=== PATIENT | male | born 1995 | race Caucasian/White ===

== ENCOUNTER 2017-01-06 21:14 | Emergency (ER) | payer MEDICAID, OTHER ==
[~2017-01-06] VITALS: Ht 180.3 cm; Wt 100.0 kg
[2017-01-06 22:05] LABS: BASOPHILS # (AUTO) 0.03 K/uL (0.00-0.20); BASOPHILS % (AUTO) 0.3 % (0.0-2.0); EOSINOPHILS # (AUTO) 0.01 K/uL (0.00-0.70); EOSINOPHILS % (AUTO) 0.11 % (1.0-6.0); HEMATOCRIT 46.2 % (41-53); HEMOGLOBIN 15.7 g/dL (13.5-17.5); LYMPHOCYTES % (AUTO) 11.5 % (22.0-44.0); MEAN CORPUSCULAR HEMOGLOBIN 30.8 pg (26.0-34.0); MEAN CORPUSCULAR VOLUME 91 fL (80-100); MONOCYTES # (AUTO) 0.8 K/uL (0.1-1.0); NEUTROPHILS % (AUTO) 79.1 % (40.0-70.0); PLATELET COUNT (AUTO) 243 K/uL (150-450); RED CELL DISTRIBUTION WIDTH 12.7 % (11.5-14.5); WHITE BLOOD COUNT (AUTO) 8.9 K/uL (4.5-11.0)
[2017-01-06 22:18] LABS: ANION GAP 11 mmol/L (8-16); CALCIUM, TOTAL 9.9 mg/dL (8.8-10.5); CARBON DIOXIDE 28 mmol/L (22-29); CHLORIDE 100 mmol/L (98-107); CREATININE 1.07 mg/dL (0.60-1.30); GLOMERULAR FILTR. RATE CALC > 60 mL/min (>60); POTASSIUM 4.2 mmol/L (3.5-5.1); SODIUM SERUM 139 mmol/L (136-145); UREA NITROGEN, BLOOD 14 mg/dL (7-18)
[2017-01-06 22:19] LABS: ADD UA MICROSCOPIC NO; APPEARANCE,URINE CLEAR (CLEAR); GLUCOSE, URINE (UA) NEGATIVE (NEGATIVE); KETONES,URINE NEGATIVE (NEGATIVE); LEUKOCYTE ESTERASE ,URINE NEGATIVE (NEGATIVE); OCCULT BLOOD,URINE NEGATIVE (NEGATIVE); PH,URINE 6.5 (5.0-8.0); PROTEIN,URINE NEGATIVE (NEGATIVE)
[2017-01-06 22:24] LABS: ALANINE AMINOTRANSFERASE 201 U/L (12-78); ALBUMIN 4.3 g/dL (3.4-5.0); ASPARTATE AMINOTRANSFERASE 75 U/L (15-37); BILIRUBIN,TOTAL 0.5 mg/dL (0.1-1.0)
[2017-01-07] MEDS ORDERED: MAG HYDROX/AL HYDROX/SIMETH ES 30 ML SUSPENSION UDCUP PO ONE (00:30)
[2017-01-07] MEDS ORDERED: ONDANSETRON HCL 4 MG TABLET PO ONE (00:30)
[2017-01-07] MEDS ORDERED: ACETAMINOPHEN 500 MG TABLET PO ONE (00:30)
[2017-01-07 01:23] VITALS: BP 139/86
== END 2017-01-07 03:06 | disposition home or self-care (01) ==
LOC: EMS 21:15
DX: K29.70 Gastritis, unspecified, without bleeding (principal); K76.0 Fatty (change of) liver, not elsewhere classified; F15.10 Other stimulant abuse, uncomplicated
CPT/HCPCS: 36415; 76700; 80053; 80307; 81003; 83690; 85025; 99285; Q0162

== ENCOUNTER 2017-01-23 14:27 | Emergency (ER) | payer MEDICAID ==
[~2017-01-23] VITALS: Ht 180.3 cm; Wt 79.5 kg
[2017-01-23 15:11] VITALS: BP 122/80
== END 2017-01-23 15:55 | disposition home or self-care (01) ==
LOC: EMS 14:29
DX: L08.9 Local infection of the skin and subcutaneous tissue, unspecified (principal); F17.210 Nicotine dependence, cigarettes, uncomplicated; F19.90 Other psychoactive substance use, unspecified, uncomplicated
CPT/HCPCS: 99283

== ENCOUNTER 2017-02-08 20:28 | Emergency (ER) | payer MEDICAID ==
[~2017-02-08] VITALS: Ht 180.3 cm; Wt 94.1 kg
[2017-02-08] MEDS ORDERED: BACITRACIN 0.9 GM PACKET OINTMENT TP ONE (21:00)
[2017-02-08] MEDS ORDERED: CefTRIAXone SODIUM 1 GM/VIAL IM ONE (21:00)
[2017-02-08] MEDS ORDERED: LIDOCAINE HCL/PF 1% 2 ML VIAL IM ONE (21:00)
[2017-02-08 21:23] VITALS: BP 127/79
== END 2017-02-08 21:44 | disposition home or self-care (01) ==
LOC: EMS 20:31
DX: L03.116 Cellulitis of left lower limb (principal); L03.115 Cellulitis of right lower limb; L98.9 Disorder of the skin and subcutaneous tissue, unspecified; F19.90 Other psychoactive substance use, unspecified, uncomplicated; F17.210 Nicotine dependence, cigarettes, uncomplicated
CPT/HCPCS: 96372; 99283; J0696; J3490

== ENCOUNTER 2018-03-11 17:40 | Emergency (ER) | payer MEDICAID ==
[~2018-03-11] VITALS: Ht 180.3 cm; Wt 81.8 kg
[2018-03-11] MEDS ORDERED: IBUPROFEN 800 MG TABLET PO ONE (18:30)
[2018-03-11] MEDS ORDERED: BACITRACIN 0.9 GM PACKET OINTMENT TP ONE (19:45)
[2018-03-11] MEDS ORDERED: CEPHALEXIN MONOHYDRATE 500 MG CAPSULE PO ONE (20:00)
[2018-03-11 20:15] VITALS: BP 129/76
== END 2018-03-11 20:22 | disposition home or self-care (01) ==
LOC: EMS 17:41
DX: S99.911A Unspecified injury of right ankle, initial encounter (principal); L03.115 Cellulitis of right lower limb; F17.210 Nicotine dependence, cigarettes, uncomplicated; F12.90 Cannabis use, unspecified, uncomplicated; F19.90 Other psychoactive substance use, unspecified, uncomplicated; X58.XXXA Exposure to other specified factors, initial encounter; Y93.89 Activity, other specified; Y92.89 Other specified places as the place of occurrence of the external cause; Y99.8 Other external cause status
CPT/HCPCS: 29515; 99284; 99406

== ENCOUNTER 2018-07-23 23:07 | Emergency (ER) | payer MEDICAID ==
[~2018-07-23] VITALS: Ht 180.3 cm; Wt 84.1 kg
[2018-07-24 03:50] VITALS: BP 137/81
== END 2018-07-24 04:35 | disposition home or self-care (01) ==
LOC: EMS 23:08
DX: M79.671 Pain in right foot (principal); M79.672 Pain in left foot; M25.572 Pain in left ankle and joints of left foot; F17.210 Nicotine dependence, cigarettes, uncomplicated; F15.90 Other stimulant use, unspecified, uncomplicated; F12.90 Cannabis use, unspecified, uncomplicated; X50.1XXA Overexertion from prolonged static or awkward postures, initial encounter; Y93.89 Activity, other specified; Y92.89 Other specified places as the place of occurrence of the external cause; Y99.8 Other external cause status

== ENCOUNTER 2018-07-25 10:19 | Emergency (ER) | payer MEDICAID ==
[~2018-07-25] VITALS: Ht 180.3 cm; Wt 81.8 kg
[2018-07-25] MEDS ORDERED: [UNRECOGNIZED DRUG - OTHER] TP ONE (11:15)
[2018-07-25] MEDS ORDERED: TERBINAFINE HCL 1% 30 GM CREAM TP ONE (11:15)
[2018-07-25 12:00] VITALS: BP 122/71
== END 2018-07-25 12:28 | disposition home or self-care (01) ==
LOC: EMS 10:22
DX: B35.3 Tinea pedis (principal); F17.210 Nicotine dependence, cigarettes, uncomplicated; F12.90 Cannabis use, unspecified, uncomplicated; F19.90 Other psychoactive substance use, unspecified, uncomplicated
CPT/HCPCS: 99406

== ENCOUNTER 2018-07-28 19:39 | Emergency (ER) | payer MEDICAID ==
[~2018-07-28] VITALS: Ht 180.3 cm; Wt 77.3 kg
[2018-07-28 22:24] VITALS: BP 115/70
== END 2018-07-28 22:27 | disposition home or self-care (01) ==
LOC: EMS 19:40
DX: S93.601A Unspecified sprain of right foot, initial encounter (principal); F11.90 Opioid use, unspecified, uncomplicated; F12.90 Cannabis use, unspecified, uncomplicated; F15.90 Other stimulant use, unspecified, uncomplicated; F17.210 Nicotine dependence, cigarettes, uncomplicated; X50.9XXA Other and unspecified overexertion or strenuous movements or postures, initial encounter; Y93.89 Activity, other specified; Y92.89 Other specified places as the place of occurrence of the external cause; Y99.8 Other external cause status

== ENCOUNTER 2018-07-29 20:47 | Emergency (ER) | payer MEDICAID ==
[~2018-07-29] VITALS: Ht 180.3 cm; Wt 79.5 kg
[2018-07-29 20:54] VITALS: BP 118/87
== END 2018-07-29 22:45 | disposition left against medical advice (07) ==
LOC: EMS 20:47
DX: M79.604 Pain in right leg (principal); Z53.21 Procedure and treatment not carried out due to patient leaving prior to being seen by health care provider

== ENCOUNTER 2018-08-10 23:22 | Emergency (ER) | payer MEDICAID ==
[~2018-08-10] VITALS: Ht 180.3 cm; Wt 79.5 kg
[2018-08-11] MEDS ORDERED: NEOMYCIN/BACITRACIN/POLYMYXIN B OINTMENT PACKET TP ONE (01:45)
[2018-08-11 02:04] VITALS: BP 133/80
== END 2018-08-11 02:07 | disposition home or self-care (01) ==
LOC: EMS 23:23
DX: S90.822A Blister (nonthermal), left foot, initial encounter (principal); S90.821A Blister (nonthermal), right foot, initial encounter; F15.10 Other stimulant abuse, uncomplicated; F11.10 Opioid abuse, uncomplicated; B35.3 Tinea pedis; F17.210 Nicotine dependence, cigarettes, uncomplicated; F12.90 Cannabis use, unspecified, uncomplicated; X58.XXXA Exposure to other specified factors, initial encounter; Y93.89 Activity, other specified; Y92.89 Other specified places as the place of occurrence of the external cause; Y99.8 Other external cause status
CPT/HCPCS: 99406

== ENCOUNTER 2018-08-18 03:28 | Emergency (ER) | payer MEDICAID | END 2018-08-18 04:00 | disposition left against medical advice (07) | LOC: EMS 03:28 | DX: Z00.00 Encounter for general adult medical examination without abnormal findings (principal); Z53.21 Procedure and treatment not carried out due to patient leaving prior to being seen by health care provider ==

== ENCOUNTER 2018-10-06 03:01 | Emergency (ER) | payer MEDICAID ==
[~2018-10-06] VITALS: Ht 180.3 cm; Wt 79.5 kg
[2018-10-06 04:16] LABS: AMPHET/METH SCREEN,URINE NEGATIVE (NEGATIVE); BARBITURATE SCREEN, URINE NEGATIVE (NEGATIVE); BENZODIAZEPINES SCREEN,URINE NEGATIVE (NEGATIVE); CANNABINOID SCREEN,URINE POSITIVE (NEGATIVE); COCAINE SCREEN,URINE NEGATIVE (NEGATIVE); METHADONE SCREEN, URINE NEGATIVE (NEGATIVE); OPIATE SCREEN,URINE NEGATIVE (NEGATIVE); PHENCYCLIDINE SCREEN,URINE NEGATIVE (NEGATIVE)
[2018-10-06 04:33] VITALS: BP 110/71
== END 2018-10-06 05:51 | disposition home or self-care (01) ==
LOC: EMS 03:01
DX: R07.89 Other chest pain (principal); F17.210 Nicotine dependence, cigarettes, uncomplicated; F15.90 Other stimulant use, unspecified, uncomplicated; F12.90 Cannabis use, unspecified, uncomplicated

== ENCOUNTER 2018-11-12 14:08 | Inpatient (IN) | payer MEDICAID ==
[~2018-11-12] VITALS: Ht 180.3 cm; Wt 68.7 kg
[2018-11-12] MEDS ORDERED: LORazepam 2 MG/ML VIAL IM ONE (14:30)
[2018-11-12] MEDS ORDERED: HALOPERIDOL LACTATE 5 MG/ML VIAL IM ONE (14:30)
[2018-11-12] MEDS ORDERED: DiphenhydrAMINE HCL 50 MG/ML VIAL IM ONE (14:30)
[2018-11-12 16:35] LABS: BASOPHILS % (AUTO) 0.7 % (0.0-2.0); EOSINOPHILS % (AUTO) 1.1 % (1.0-6.0); HEMATOCRIT 41.2 % (41-53); LYMPHOCYTES # (AUTO) 1.6 K/uL (1.0-4.8); LYMPHOCYTES % (AUTO) 19.8 % (22.0-44.0); MEAN CORPUSCULAR VOLUME 88 fL (80-100); MONOCYTES # (AUTO) 0.9 K/uL (0.1-1.0); MONOCYTES % (AUTO) 10.8 % (2.0-9.0); NEUTROPHILS # (AUTO) 5.4 K/uL (1.8-7.7); NEUTROPHILS % (AUTO) 67.6 % (40.0-70.0); PLATELET COUNT (AUTO) 263 K/uL (150-450); RED BLOOD CELL COUNT(AUTO) 4.67 MIL/uL (4.50-5.90); RED CELL DISTRIBUTION WIDTH 13.8 % (11.5-14.5)
[2018-11-12 16:45] LABS: ANION GAP 8 mmol/L (8-16); CALCIUM, TOTAL 8.7 mg/dL (8.8-10.5); CARBON DIOXIDE 26 mmol/L (22-29); CHLORIDE 110 mmol/L (98-107); CREATININE 1.09 mg/dL (0.60-1.30); GLOMERULAR FILTR. RATE CALC > 60 mL/min (>60); GLUCOSE,RANDOM 107 mg/dL (70-110); POTASSIUM 4.1 mmol/L (3.5-5.1); SODIUM SERUM 144 mmol/L (136-145); UREA NITROGEN, BLOOD 11 mg/dL (7-18)
[2018-11-12] MEDS ORDERED: ZOLPIDEM TARTRATE 10 MG TABLET PO PRN (16:45)
[2018-11-12] MEDS ORDERED: HALOPERIDOL 5 MG TABLET PO PRN (16:45)
[2018-11-12 16:51] LABS: ALANINE AMINOTRANSFERASE 26 U/L (12-78); ALBUMIN 3.5 g/dL (3.4-5.0); ALKALINE PHOSPHATASE 104 U/L (46-116); ASPARTATE AMINOTRANSFERASE 17 U/L (15-37); BILIRUBIN,TOTAL 0.3 mg/dL (0.1-1.0); TOTAL PROTEIN, SERUM 6.3 g/dL (6.4-8.2)
[2018-11-12 18:40] VITALS: BP 132/72
[2018-11-13 08:09] VITALS: BP 105/63
[2018-11-13 16:01] VITALS: BP 116/68
[2018-11-13] MEDS: LORazepam 2 MG TABLET PO PRN (16:35)
[2018-11-13] MEDS: BENZTROPINE MESYLATE 0.5 MG TABLET PO SCH (16:35)
[2018-11-13] MEDS: HALOPERIDOL 5 MG TABLET PO SCH (16:35)
[2018-11-14 06:01] VITALS: BP 110/70
[2018-11-14 08:08] VITALS: BP 100/61
[2018-11-14] MEDS: BENZTROPINE MESYLATE 0.5 MG TABLET PO SCH ×2 (08:09→16:16)
[2018-11-14] MEDS: HALOPERIDOL 5 MG TABLET PO SCH ×2 (08:09→16:16)
[2018-11-14] MEDS: FLUoxetine HCL 20 MG CAPSULE PO SCH (13:48)
[2018-11-14 16:06] VITALS: BP 109/62
[2018-11-14] MEDS: LORazepam 2 MG TABLET PO PRN (16:17)
[2018-11-15 06:15] VITALS: BP 103/61
[2018-11-15 08:07] VITALS: BP 100/60
[2018-11-15] MEDS: HALOPERIDOL 5 MG TABLET PO SCH ×2 (08:11→16:10)
[2018-11-15] MEDS: FLUoxetine HCL 20 MG CAPSULE PO SCH (08:11)
[2018-11-15] MEDS: BENZTROPINE MESYLATE 0.5 MG TABLET PO SCH ×2 (08:11→16:10)
[2018-11-15 16:02] VITALS: BP 102/61
[2018-11-16 08:09] VITALS: BP 111/63
[2018-11-16] MEDS: BENZTROPINE MESYLATE 0.5 MG TABLET PO SCH ×2 (09:12→16:48)
[2018-11-16] MEDS: FLUoxetine HCL 20 MG CAPSULE PO SCH (09:12)
[2018-11-16] MEDS: HALOPERIDOL 5 MG TABLET PO SCH ×2 (09:12→16:48)
[2018-11-16] MEDS: LORazepam 2 MG TABLET PO PRN ×2 (09:12→16:48)
[2018-11-16 16:00] VITALS: BP 106/63
[2018-11-17 08:25] VITALS: BP 110/60
[2018-11-17] MEDS: FLUoxetine HCL 20 MG CAPSULE PO SCH (08:46)
[2018-11-17] MEDS: BENZTROPINE MESYLATE 0.5 MG TABLET PO SCH ×2 (08:46→16:13)
[2018-11-17] MEDS: HALOPERIDOL 5 MG TABLET PO SCH ×2 (08:46→16:13)
[2018-11-17 16:06] VITALS: BP 104/46
[2018-11-17] MEDS: LORazepam 2 MG TABLET PO PRN (16:13)
[2018-11-18 06:15] VITALS: BP 118/62
[2018-11-18 08:03] VITALS: BP 104/55
[2018-11-18] MEDS: FLUoxetine HCL 20 MG CAPSULE PO SCH (09:03)
[2018-11-18] MEDS: BENZTROPINE MESYLATE 0.5 MG TABLET PO SCH ×2 (09:03→16:40)
[2018-11-18] MEDS: HALOPERIDOL 5 MG TABLET PO SCH ×2 (09:03→16:40)
[2018-11-18 16:05] VITALS: BP 101/62
[2018-11-18] MEDS: LORazepam 2 MG TABLET PO PRN (16:40)
[2018-11-19 06:27] VITALS: BP 101/56
[2018-11-19 08:16] VITALS: BP 105/61
[2018-11-19] MEDS: BENZTROPINE MESYLATE 0.5 MG TABLET PO SCH ×2 (09:07→16:48)
[2018-11-19] MEDS: HALOPERIDOL 5 MG TABLET PO SCH ×2 (09:07→16:48)
[2018-11-19] MEDS: FLUoxetine HCL 20 MG CAPSULE PO SCH (09:07)
[2018-11-19] MEDS: LORazepam 2 MG TABLET PO PRN (16:48)
[2018-11-19 16:58] VITALS: BP 103/62
[2018-11-20 06:18] VITALS: BP 109/53
[2018-11-20] MEDS ORDERED: FLUO-191 PO (07:46)
[2018-11-20] MEDS ORDERED: BENZ0.5T44 PO (07:46)
[2018-11-20] MEDS ORDERED: HALO5TAB2 PO (07:46)
[2018-11-20 08:23] VITALS: BP 109/38
[2018-11-20] MEDS ORDERED: LOPERAMIDE HCL 2 MG CAPSULE PO PRN (08:30)
[2018-11-20] MEDS: FLUoxetine HCL 20 MG CAPSULE PO SCH (08:36)
[2018-11-20] MEDS: HALOPERIDOL 5 MG TABLET PO SCH (08:36)
[2018-11-20] MEDS: BENZTROPINE MESYLATE 0.5 MG TABLET PO SCH (08:36)
== END 2018-11-20 10:15 | disposition home or self-care (01) | DRG 751 ==
LOC: EMS 14:10 → B3A 17:24
PROVIDERS: ADMIT Psychiatry & Neurology Psychiatry; ATTEND Psychiatry & Neurology Psychiatry
DX: F29 Unspecified psychosis not due to a substance or known physiological condition (principal); F15.20 Other stimulant dependence, uncomplicated; F31.9 Bipolar disorder, unspecified; F11.90 Opioid use, unspecified, uncomplicated; F12.90 Cannabis use, unspecified, uncomplicated; F17.210 Nicotine dependence, cigarettes, uncomplicated; F41.9 Anxiety disorder, unspecified; R45.850 Homicidal ideations; R41.843 Psychomotor deficit; R45.87 Impulsiveness; Z59.0 Homelessness; Z91.19 Patient's noncompliance with other medical treatment and regimen
CPT/HCPCS: 96372; 99291; G0480; J1200; J1630; J2060

== ENCOUNTER 2018-11-20 16:44 | Emergency (ER) | payer MEDICAID ==
[~2018-11-20] VITALS: Ht 188 cm; Wt 75.0 kg
[~2018-11-20 16:44] MED LIST: BENZ0.5T44 PO; FLUO-191 PO; HALO5TAB2 PO
[2018-11-20 18:21] LABS: BASOPHILS % (AUTO) 0.8 % (0.0-2.0); EOSINOPHILS % (AUTO) 1.5 % (1.0-6.0); HEMATOCRIT 42.4 % (41-53); HEMOGLOBIN 14.2 g/dL (13.5-17.5); LYMPHOCYTES # (AUTO) 3.1 K/uL (1.0-4.8); LYMPHOCYTES % (AUTO) 40.2 % (22.0-44.0); MEAN CORPUSCULAR HEMOGLOBIN 30.3 pg (26.0-34.0); MEAN CORPUSCULAR HGB CONC 33.5 G/dL (31.0-37.0); MEAN CORPUSCULAR VOLUME 90 fL (80-100); MONOCYTES # (AUTO) 0.8 K/uL (0.1-1.0); MONOCYTES % (AUTO) 10.2 % (2.0-9.0); NEUTROPHILS # (AUTO) 3.6 K/uL (1.8-7.7); NEUTROPHILS % (AUTO) 47.3 % (40.0-70.0); PLATELET COUNT (AUTO) 254 K/uL (150-450); RED CELL DISTRIBUTION WIDTH 13.8 % (11.5-14.5)
[2018-11-20 18:38] LABS: ANION GAP 6 mmol/L (8-16); CALCIUM, TOTAL 9.3 mg/dL (8.8-10.5); CARBON DIOXIDE 29 mmol/L (22-29); CHLORIDE 105 mmol/L (98-107); GLOMERULAR FILTR. RATE CALC > 60 mL/min (>60); GLUCOSE,RANDOM 89 mg/dL (70-110); POTASSIUM 4.2 mmol/L (3.5-5.1); SODIUM SERUM 140 mmol/L (136-145); UREA NITROGEN, BLOOD 23 mg/dL (7-18)
[2018-11-20 18:46] LABS: ALANINE AMINOTRANSFERASE 26 U/L (12-78); ALBUMIN 3.8 g/dL (3.4-5.0); ALKALINE PHOSPHATASE 94 U/L (46-116); ASPARTATE AMINOTRANSFERASE 11 U/L (15-37); BILIRUBIN,TOTAL 0.2 mg/dL (0.1-1.0); TOTAL PROTEIN, SERUM 6.5 g/dL (6.4-8.2)
[2018-11-20 20:35] LABS: AMPHET/METH SCREEN,URINE NEGATIVE (NEGATIVE); BARBITURATE SCREEN, URINE NEGATIVE (NEGATIVE); BENZODIAZEPINES SCREEN,URINE NEGATIVE (NEGATIVE); CANNABINOID SCREEN,URINE NEGATIVE (NEGATIVE); COCAINE SCREEN,URINE NEGATIVE (NEGATIVE); METHADONE SCREEN, URINE NEGATIVE (NEGATIVE); OPIATE SCREEN,URINE NEGATIVE (NEGATIVE)
[2018-11-20 20:36] LABS: PHENCYCLIDINE SCREEN,URINE NEGATIVE (NEGATIVE)
[2018-11-21 01:07] VITALS: BP 100/52
== END 2018-11-21 01:12 | disposition home or self-care (01) ==
LOC: EMS 16:47
DX: R45.4 Irritability and anger (principal); R45.851 Suicidal ideations; F17.210 Nicotine dependence, cigarettes, uncomplicated; F12.90 Cannabis use, unspecified, uncomplicated; F19.90 Other psychoactive substance use, unspecified, uncomplicated; F31.9 Bipolar disorder, unspecified; F11.90 Opioid use, unspecified, uncomplicated
CPT/HCPCS: 36415; 80053; 80307; 85025; 99285; G0480